=== PATIENT | male | born 1950 | race American Indian/Alaskan Native ===

== ENCOUNTER 2017-05-19 16:44 | Inpatient (IN) | payer MEDICARE, BC ==
[2017-05-19 16:44] VITALS: BMI 30.9
--- NOTE | 2017-05-19 18:20 | C.PDOC ---
History Of Present Illness 66 year old male presents to the ED after being sent by Dr. Diallo for admission for malignant otitis externa to his right ear. Patient states his symptoms began 3 weeks ago and symptoms worsened. Patient denies fever, chills. Time Seen by Provider: 05/19/17 17:40 Chief Complaint (Nursing): ENT Problem History Per: Patient History/Exam Limitations: None Onset/Duration Of Symptoms: Hrs Current Symptoms Are (Timing): Still Present Quality (Ear): Discharge. denies: Pain W/Touch Past Medical History Reviewed: Historical Data, Nursing Documentation, Vital Signs Vital Signs: Last Vital Signs Temp 97.8 F 05/19/17 16:58 Pulse 60 05/19/17 16:58 Resp 20 05/19/17 16:58 BP Pulse Ox 97 05/19/17 18:48 - Medical History PMH: Anemia, Fractures (RIGHT LEG HAIRLINE FX), HTN, Hypercholesterolemia Denies: Arthritis, CHF, COPD, HIV, Hypothyroidism, Chronic Kidney Disease, Rheumatoid Arthritis Surgical History: No Surg Hx - [facility] Procedures BELOW KNEE AMPUTAT NEC (08/07/14) OCCUPATIONAL THERAPY (12/02/14) PACKED CELL TRANSFUSION (08/07/14) PHYSICAL THERAPY NEC (12/02/14) RECREATIONAL THERAPY (12/02/14) Family History: States: Unknown Family Hx - Social History Hx Alcohol Use: No Hx Substance Use: No - Immunization History Hx Tetanus Toxoid Vaccination: No Hx Influenza Vaccination: Yes Hx Pneumococcal Vaccination: No Review Of Systems Except As Marked, All Systems Reviewed And Found Negative. Constitutional: Negative for: Fever, Chills ENT: Positive for: Ear Discharge (right). Negative for: Ear Pain Gastrointestinal: Negative for: Nausea Physical Exam - Physical Exam Appears: Non-toxic, No Acute Distress Skin: Normal Color, Warm, Dry, No Rash Head: Atraumatic, Normacephalic, No Tenderness (mastoid ), No Other (no pain with tragus manipulation ) Eye(s): bilateral: Normal Inspection, PERRL, EOMI Ear(s): Left: Other (Right TM: bleeding and discharge noted. left TM intact with mild congestion ), Right: Other Oral Mucosa: Moist Throat: No Erythema, No Exudate Neck: Normal ROM, Supple Chest: Symmetrical, No Deformity, No Tenderness Cardiovascular: Rhythm Regular, No Murmur Respiratory: Normal Breath Sounds, No Accessory Muscle Use Extremity: Normal ROM, Capillary Refill (less than 2 seconds ) Neurological/Psych: Oriented x3, Normal Speech, Normal Cognition Gait: Steady ED Course And Treatment - Laboratory Results Result Diagrams: 05/19/17 18:17 05/19/17 18:17 O2 Sat by Pulse Oximetry: 97 (on RA) Pulse Ox Interpretation: Normal Medical Decision Making Medical Decision Making: Progress: Case was discussed with Dr. Daillo (ENT) who states that the patient failed outpatient therapy. Bloodwork, UA ordered and reviewed. The case was discussed with Dr. Schmidt (PMD) who states he does not admit. Case was discussed with Dr. Haro (internal medicine oncall) who agrees to admit the patient to his service. Zosyn IV ordered. Disposition - Disposition Disposition: HOSPITALIZED Disposition Time: 18:19 Condition: FAIR Forms: [facility] (Yi) - POA Present On Arrival: None - Clinical Impression Clinical Impression: Malignant otitis externa - PA / FAMILY RESOURCE COORDINATOR / Resident Statement MD/DO has reviewed & agrees with the documentation as recorded. - Scribe Statement All medical record entries made by the Scribe were at my direction and personally dictated by me. I have reviewed the chart and agree that the record accurately reflects my personal performance of the history, physical exam, medical decision making, and the department course for this patient. I have also personally directed, reviewed, and agree with the discharge instructions and disposition.
[2017-05-19] MEDS ORDERED: Piperacillin/Tazobact 3.375 gm 100 ML IV STA (18:21)
[2017-05-19 18:24] LABS: BASO % 0.8 % (0.0-2.0); EOS # 0.1 K/uL (0.0-0.7); HEMATOCRIT 35.3 % (35.0-51.0); LYMPH % 24.4 % (20.0-40.0); MEAN CELL VOLUME 87.9 fL (80.0-94.0); MEAN CORPUSCULAR HEMOGLOBIN 29.3 pg (27.0-31.0); MEAN CORPUSCULAR HGB CONC 33.3 g/dL (33.0-37.0); MEAN PLATELET VOLUME 7.3 fL (7.2-11.7); MONO # 0.4 K/uL (0.0-0.8); NRBC % 0.1 % (0.0-2.0); RED CELL DISTRIBUTION WIDTH 14.1 % (11.5-14.5); WHITE BLOOD COUNT 4.1 K/uL (4.8-10.8)
[2017-05-19 18:32] LABS: BILIRUBIN,TOTAL 0.8 mg/dL (0.2-1.3); CALCIUM 8.8 mg/dl (8.6-10.4); GFR AFRICAN-AMERICAN > 60; GLUCOSE,RANDOM 79 mg/dL (75-110); TOTAL PROTEIN 8.5 g/dL (6.3-8.3)
[2017-05-19 18:41] LABS: ALB/GLOB RATIO 1.1 (1.0-2.1); ALKALINE PHOSPHATASE 64 U/L (38-126); ALT/SGPT 28 U/L (21-72); AST/SGOT 26 U/L (17-59); BLOOD UREA NITROGEN 34 mg/dL (9-20); CARBON DIOXIDE 24 mmol/L (22-30); CHLORIDE 104 mmol/L (98-107); POTASSIUM 4.6 mmol/L (3.6-5.2); SODIUM 137 mmol/L (132-148)
[2017-05-19] MEDS: Piperacill/Tazo 3.375gm in Dex 3.375 GM/50 ML BAG IVPB SCH (19:01)
--- NOTE | 2017-05-19 22:44 | CP.PCM.HP ---
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 LEMON, ENT for admission for malignant otitis externa to his right ear. Patient states 3 weeks ago he started with pain right ear when he went to see his PMD who gave him some eardrops and referred him to ENT. Patient was then seen by ENT and referred to [facility] ER for admission as reported. Patient was empirically started on IV Zosyn 3.375 every 8 hourly. Patient denies any fever or chills, denies any headaches or any visual problems. Patient states he noticed the discharge from his right ear and some bleeding for one day prior to admission. Patient denies any sore throat or any previous such history of ear infections. Infectious disease consultation requested by PMD for further evaluation. PATIENT UNDERWENT MRI OF THE ORBIT/FACE/NECK AND IAC WHICH SHOWED RIGHT EXTERNAL AUDITORY CANAL DIFFUSE ENHANCING WALL THICKENING SUGGESTIVE OF OTITIS EXTERNA, NO ABSCESS WAS SEEN. SMALL EFFUSION SUPERIOR PORTION OF RIGHT MASTOID WAS SEEN.( see report ) PATIENT ALSO UNDERWENT ON 05/20/[address] AND MASTOID-WHICH CONFIRMED THE FINDINGS OF COMPLETE OBSTRUCTION OF EXTERNAL CANAL AND DIFFUSE THICKENING RIGHT EAC. NO BONY DESTRUCTION OF THE ORBITS MEDIA WAS SEEN. ( see full report ) PMH: Anemia, Fractures (RIGHT LEG HAIRLINE FX), HTN, Hypercholesterolemia Denies: Arthritis, CHF, COPD, HIV, Hypothyroidism, Chronic Kidney Disease, Rheumatoid Arthritis Surgical History: LEFT BKA 2015. Present on Admission - Present on Admission Any Indicators Present on Admission: Yes Review of Systems - Review of Systems Systems not reviewed;Unavailable: Acuity of Condition - Constitutional Constitutional: Chills, Fatigue, Fever, Lethargy, Malaise - EENT Eyes: absent: As Per HPI, Blind Spots, Blurred Vision, Change in Vision, Decreased Night Vision, Diplopia, Discharge, Dry Eye, Exophthalmos, Floaters, Irritation, Itchy Eyes, Loss of Peripheral Vision, Pain, Photophobia, Requires Corrective Lenses, Sees Flashes, Spots in Vision, Tunnel Vision, Other Visual Disturbances, Loss of Vision, Other Ears: Ear Discharge, Ear Pain Nose/Mouth/Throat: absent: As Per HPI, Epistaxis, Nasal Congestion, Nasal Discharge, Nasal Obstruction, Nasal Trauma, Nose Pain, Post Nasal Drip, Sinus Pain, Sinus Pressure, Bleeding Gums, Change in Voice, Dental Pain, Dry Mouth, Dysphagia, Halitosis, Hoarsness, Lip Swelling, Mouth Lesions, Mouth Pain, Odynophagia, Sore Throat, Throat Swelling, Tongue Swelling, Facial Pain, Neck Pain, Neck Mass, Other - Cardiovascular Cardiovascular: absent: As Per HPI, Acrocyanosis, Chest Pain, Chest Pain at Rest , Chest Pain with Activity, Claudication, Diaphoresis, Dyspnea, Dyspnea on Exertion, Edema, Irregular Heart Rhythm, Pain Radiating to Arm/Neck/Jaw, Leg Edema, Leg Ulcers, Lightheadedness, Orthopnea, Palpitations, Paroxysmal Nocturnal Dyspnea, Pedal Edema, Radiating Pain, Rapid Heart Rate, Slow Heart Rate, Syncope, Other - Respiratory Respiratory: absent: As Per HPI, Cough, Dyspnea, Hemoptysis, Dyspnea on Exertion , Wheezing, Snoring, Stridor, Pain on Inspiration, Chest Congestion, Excessive Mucous Production, Change in Mucous Color, Pain with Coughing, Other Past Patient History - Infectious Disease Hx of Infectious Diseases: None - Tetanus Immunizations Tetanus Immunization: Unknown - Past Medical History & Family History Past Medical History?: Yes - Past Social History Smoking Status: Never Smoked - CARDIAC Hx Congestive Heart Failure: No Hx Hypercholesterolemia: Yes Hx Hypertension: Yes - PULMONARY Hx Chronic Obstructive Pulmonary Disease (COPD): No - NEUROLOGICAL HX Cerebrovascular Accident: No - HEENT Hx HEENT Problems: No - RENAL Hx Chronic Kidney Disease: No - ENDOCRINE/METABOLIC Hx Hypothyroidism: No - HEMATOLOGICAL/ONCOLOGICAL Hx Anemia: Yes Hx Human Immunodeficiency Virus (HIV): No - INTEGUMENTARY Hx Dermatological Problems: Yes (LEFT FOOT ULCER, LEFT LEG ULCER) - MUSCULOSKELETAL/RHEUMATOLOGICAL Hx Arthritis: No Hx Fractures: Yes (RIGHT LEG HAIRLINE FX) Hx Rheumatoid Arthritis: No - GASTROINTESTINAL Hx Gastrointestinal Disorders: No - GENITOURINARY/GYNECOLOGICAL Hx Genitourinary Disorders: No - PSYCHIATRIC Hx Substance Use: No - SURGICAL HISTORY Hx Surgeries: Yes Hx Amputation: Yes (LEFT BKA 08/07/14 C/O DR. EDMONDSON) Other/Comment: RIGHT TOES AMPUTATION 2003, LEFT TOES AMPUTATION 2011, LEFT BKA C/O DR. CAI - ANESTHESIA Hx Anesthesia: Yes Hx Anesthesia Reactions: No Hx Malignant Hyperthermia: No Meds Allergies/Adverse Reactions: Allergies Allergy/AdvReac Type Severity Reaction Status Date / Time No Known Allergies Allergy Verified 05/19/17 16:59 Physical Exam - Constitutional Appears: No Acute Distress - Eye Exam Eye Exam: EOMI, Normal appearance, PERRL Pupil Exam: NORMAL ACCOMODATION, PERRL - ENT Exam ENT Exam: absent: Mucous Membranes Dry, Mucous Membranes Moist, Normal Exam, Normal External Ear Exam, Normal Oropharynx, TM's Normal Bilaterally - Cardiovascular Exam Cardiovascular Exam: REGULAR RHYTHM - GI/Abdominal Exam GI & Abdominal Exam: Normal Bowel Sounds, Soft. absent: Tenderness - Rectal Exam Rectal Exam: NORMAL INSPECTION Results - Vital Signs Recent Vital Signs: Last Vital Signs Temp 97.8 F 05/19/17 22:39 Pulse 50 L 05/19/17 22:39 Resp 19 05/19/17 22:39 BP 167/74 H 05/19/17 22:39 Pulse Ox 98 05/19/17 22:39 - Labs Result Diagrams: 05/22/17 07:29 05/22/17 07:29 Labs: Laboratory Results - last 24 hr 05/19/17 05/19/17 18:17 18:17 WBC 4.1 L RBC 4.01 L Hgb 11.8 L D Hct 35.3 MCV 87.9 MCH 29.3 MCHC 33.3 RDW 14.1 Plt Count 229 MPV 7.3 Neut % (Auto) 61.8 Lymph % (Auto) 24.4 [place] % (Auto) 10.0 Eos % (Auto) 3.0 Baso % (Auto) 0.8 Neut # 2.5 Lymph # 1.0 [place] # 0.4 Eos # 0.1 Baso # 0.0 Sodium 137 Potassium 4.6 Chloride 104 Carbon Dioxide 24 Anion Gap 13 BUN 34 H Creatinine 1.3 Est GFR ( Amer) > 60 Est GFR (Non-Af Amer) 55 Random Glucose 79 Calcium 8.8 Total Bilirubin 0.8 AST 26 ALT 28 Alkaline Phosphatase 64 Total Protein 8.5 H Albumin 4.4 Globulin 4.1 H Albumin/Globulin Ratio 1.1 Assessment & Plan (1) Malignant otitis externa Status: Acute (2) CKD (chronic kidney disease) stage 3, GFR 30-59 ml/min Status: Acute (3) DVT prophylaxis Status: Acute Priority: High (4) S/P BKA (below knee amputation) unilateral Status: Acute Priority: High (5) Anemia Status: Chronic Priority: Low (6) Diabetes mellitus Status: Chronic Priority: High (7) Hyperlipidemia Status: Chronic Priority: Medium (8) Hypertension Status: Chronic Priority: Medium
[2017-05-20] MEDS: Rosuvastatin Calcium 2.5 mg Tab PO SCH ×2 (00:08→21:27)
[2017-05-20] MEDS: Insulin Detemir 100 units/ml Vial (Levemir) SC SCH ×2 (00:08→21:27)
[2017-05-20] MEDS: Piperacill/Tazo 3.375gm in Dex 3.375 GM/50 ML BAG IVPB SCH ×2 (02:01→06:49)
--- NOTE | 2017-05-20 09:50 | CP.PCM.CON ---
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 LEMON, ENT for admission for malignant otitis externa to his right ear. Patient states 3 weeks ago he started with pain right ear when he went to see his PMD who gave him some eardrops and referred him to ENT. Patient was then seen by ENT and referred to [facility] ER for admission as reported. Patient was empirically started on IV Zosyn 3.375 every 8 hourly. Patient denies any fever or chills, denies any headaches or any visual problems. Patient states he noticed the discharge from his right ear and some bleeding for one day prior to admission. Patient denies any sore throat or any previous such history of ear infections. Infectious disease consultation requested by PMD for further evaluation. PATIENT UNDERWENT MRI OF THE ORBIT/FACE/NECK AND IAC WHICH SHOWED RIGHT EXTERNAL AUDITORY CANAL DIFFUSE ENHANCING WALL THICKENING SUGGESTIVE OF OTITIS EXTERNA, NO ABSCESS WAS SEEN. SMALL EFFUSION SUPERIOR PORTION OF RIGHT MASTOID WAS SEEN.( see report ) PATIENT ALSO UNDERWENT ON 05/20/[address] AND MASTOID-WHICH CONFIRMED THE FINDINGS OF COMPLETE OBSTRUCTION OF EXTERNAL CANAL AND DIFFUSE THICKENING RIGHT EAC. NO BONY DESTRUCTION OF THE ORBITS MEDIA WAS SEEN. ( see full report ) PMH: Anemia, Fractures (RIGHT LEG HAIRLINE FX), HTN, Hypercholesterolemia Denies: Arthritis, CHF, COPD, HIV, Hypothyroidism, Chronic Kidney Disease, Rheumatoid Arthritis Surgical History: LEFT BKA 2014. - [facility] Procedures BELOW KNEE AMPUTAT NEC (08/07/14) OCCUPATIONAL THERAPY (12/02/14) PACKED CELL TRANSFUSION (08/07/14) PHYSICAL THERAPY NEC (12/02/14) RECREATIONAL THERAPY (12/02/14) Family History: States: Unknown Family Hx - Social History Hx Alcohol Use: No Hx Substance Use: No - Immunization History Hx Tetanus Toxoid Vaccination: No Hx Influenza Vaccination: Yes Hx Pneumococcal Vaccination: No Review of Systems - Constitutional Constitutional: absent: Chills, Fever, Headache - EENT Eyes: absent: Change in Vision, Photophobia, Other Visual Disturbances, Loss of Vision Nose/Mouth/Throat: Dry Mouth. absent: Mouth Lesions - Cardiovascular Cardiovascular: absent: Chest Pain - Respiratory Respiratory: absent: Cough - Gastrointestinal Gastrointestinal: absent: Abdominal Pain, Constipation, Diarrhea - Genitourinary Genitourinary: absent: Dysuria, Urinary Urgency, Hx /Renal Surgery - Musculoskeletal Musculoskeletal: absent: Arthralgias - Neurological Neurological: absent: Headaches, Weakness, Other Visual Disturbances - Hematologic/Lymphatic Hematologic: As Per HPI. absent: Easy Bruising, Lymphadenopathy Past Patient History - Infectious Disease Hx of Infectious Diseases: None - Tetanus Immunizations Tetanus Immunization: Unknown - Past Medical History & Family History Past Medical History?: Yes - Past Social History Smoking Status: Never Smoked - CARDIAC Hx Congestive Heart Failure: No Hx Hypercholesterolemia: Yes Hx Hypertension: Yes - PULMONARY Hx Chronic Obstructive Pulmonary Disease (COPD): No - NEUROLOGICAL HX Cerebrovascular Accident: No - HEENT Hx HEENT Problems: No - RENAL Hx Chronic Kidney Disease: No - ENDOCRINE/METABOLIC Hx Hypothyroidism: No - HEMATOLOGICAL/ONCOLOGICAL Hx Anemia: Yes Hx Human Immunodeficiency Virus (HIV): No - INTEGUMENTARY Hx Dermatological Problems: Yes (LEFT FOOT ULCER, LEFT LEG ULCER) - MUSCULOSKELETAL/RHEUMATOLOGICAL Hx Arthritis: No Hx Fractures: Yes (RIGHT LEG HAIRLINE FX) Hx Rheumatoid Arthritis: No - GASTROINTESTINAL Hx Gastrointestinal Disorders: No - GENITOURINARY/GYNECOLOGICAL Hx Genitourinary Disorders: No - PSYCHIATRIC Hx Substance Use: No - SURGICAL HISTORY Hx Surgeries: Yes Hx Amputation: Yes (LEFT BKA 08/07/14 C/O DR. EDMONDSON) Other/Comment: RIGHT TOES AMPUTATION 2003, LEFT TOES AMPUTATION 2011, LEFT BKA C/O DR. CAI - ANESTHESIA Hx Anesthesia: Yes Hx Anesthesia Reactions: No Hx Malignant Hyperthermia: No Meds Allergies/Adverse Reactions: Allergies Allergy/AdvReac Type Severity Reaction Status Date / Time No Known Allergies Allergy Verified 05/19/17 16:59 - Medications Medications: Current Medications Amlodipine Besylate (Norvasc) 10 mg PO DAILY [facility] Aspirin (Ecotrin) 81 mg PO DAILY [facility] Bisoprolol Fumarate/HCTZ (Ziac 10-6.25 Mg) 1 tab PO DAILY [facility] Carvedilol (Coreg) 12.5 mg PO BID [facility] Clopidogrel Bisulfate (Plavix) 75 mg PO DAILY [facility] Enoxaparin Sodium (Lovenox) 40 mg SC DAILY [facility] Furosemide (Lasix) 40 mg PO DAILY [facility] Hydralazine HCl (Apresoline) 25 mg PO Q8 [facility] Last Admin: 05/20/17 06:17 Dose: 25 mg Piperacillin Sod/Tazobactam Sod (Zosyn 3.375 Gm Iv Premix) 3.375 gm in 50 mls @ 100 mls/hr IVPB Q6H [facility] Last Admin: 05/20/17 06:49 Dose: 100 mls/hr Insulin Detemir (Levemir) 5 unit SC [facility] Last Admin: 05/20/17 00:08 Dose: 5 unit Rosuvastatin Calcium (Crestor) 2.5 mg PO [facility] Last Admin: 05/20/17 00:08 Dose: 2.5 mg Physical Exam - Constitutional Appears: No Acute Distress - Head Exam Head Exam: NORMAL INSPECTION, NORMOCEPHALIC - Eye Exam Eye Exam: EOMI, PERRL. absent: Scleral icterus - ENT Exam ENT Exam: Normal External Ear Exam (left ear. Rt. ear dried-up blood noticed in the external ear canal. Eardrum not visualized.), Normal Oropharynx - Neck Exam Neck exam: Positive for: Normal Inspection. Negative for: Meningismus - Respiratory Exam Respiratory Exam: Clear to Auscultation Bilateral, NORMAL BREATHING PATTERN - Cardiovascular Exam Cardiovascular Exam: REGULAR RHYTHM, +S2 - GI/Abdominal Exam GI & Abdominal Exam: Normal Bowel Sounds, Soft. absent: Tenderness - Extremities Exam Extremities exam: Negative for: calf tenderness, pedal edema Additional comments: left below-knee amputation. - Neurological Exam Neurological exam: Alert, CN II-XII Intact, Oriented x3, Reflexes Normal - Psychiatric Exam Psychiatric exam: Normal Mood - Skin Skin Exam: Normal Color, Warm Results - Vital Signs Recent Vital Signs: Last Vital Signs Temp 98.1 F 05/20/17 09:21 Pulse 87 05/20/17 09:21 Resp 18 05/20/17 09:21 BP 160/75 H 05/20/17 09:21 Pulse Ox 96 05/20/17 09:21 - Labs Result Diagrams: 05/19/17 18:17 05/19/17 18:17 Labs: Laboratory Results - last 24 hr 05/19/17 05/19/17 05/19/17 18:17 18:17 23:49 WBC 4.1 L RBC 4.01 L Hgb 11.8 L D Hct 35.3 MCV 87.9 MCH 29.3 MCHC 33.3 RDW 14.1 Plt Count 229 MPV 7.3 Neut % (Auto) 61.8 Lymph % (Auto) 24.4 [place] % (Auto) 10.0 Eos % (Auto) 3.0 Baso % (Auto) 0.8 Neut # 2.5 Lymph # 1.0 [place] # 0.4 Eos # 0.1 Baso # 0.0 Sodium 137 Potassium 4.6 Chloride 104 Carbon Dioxide 24 Anion Gap 13 BUN 34 H Creatinine 1.3 Est GFR ( Amer) > 60 Est GFR (Non-Af Amer) 55 POC Glucose (mg/dL) 90 Random Glucose 79 Calcium 8.8 Total Bilirubin 0.8 AST 26 ALT 28 Alkaline Phosphatase 64 Total Protein 8.5 H Albumin 4.4 Globulin 4.1 H Albumin/Globulin Ratio 1.1 Assessment & Plan (1) Malignant otitis externa Assessment and Plan: Pancultures Right ear culture As bloody discharge noted right ear. ESR, CRP. THREE-PHASE BONE SCAN IAC RT EAR ORDERED BY DR. LEMON. CASE DISCUSSED WITH ENT DR. LEMON. REPORTED MUCH GRANULATION TISSUE WAS VISIBLE ON EXAMINATION BY ENT. DC IV ZOSYN START iv MAXIPIME 1 G iv PIGGYBACK EVERY 8 HOURLY FOR BETTER PSEUDOMONAL COVERAGE, MORE OF THE INFECTIONS IN DIABETICS ARE WITH PSEUDOMONAS AERUGINOSA. fOLLOW-UP CULTURES TO ADJUST ANTIBIOTICS. MALIGNANT EXTERNAL OTITIS CAUSED BY ASPERGILLUS SPECIES IS FAR LESS OFTEN, WE WILL RESERVE BIOPSY FOR PATIENTS WHO HAVE NOT RESPONDED TO THERAPY FOR PSEUDOMONAS AERUGINOSA INFECTION. MONITOR RENAL FUNCTIONS CLOSELY PATIENT HAS HISTORY OF CHRONIC RENAL INSUFFICIENCY. MONITOR CBC WITH DIFFERENTIAL PATIENT NOTED TO BE SLIGHTLY LEUKOPENIC. AWAIT CULTURES TO ADJUST ANTIBIOTICS. WILL FOLLOW WITH YOU WHILE PATIENT IN HOSPITAL.. Status: Acute (2) Diabetes mellitus Assessment and Plan: HEMOGLOBIN a1C. ADEQUATE CONTROL OF BLOOD SUGARS PER PMD. Status: Chronic Priority: High (3) S/P BKA (below knee amputation) unilateral Status: Acute Priority: High (4) Hyperlipidemia Status: Chronic Priority: Medium (5) Hypertension Status: Chronic Priority: Medium (6) CKD (chronic kidney disease) stage 3, GFR 30-59 ml/min Status: Acute
[2017-05-20] MEDS ORDERED: Bisoprolol-HCTZ 10-6.25 mg Tab PO SCH (10:00)
[2017-05-20] MEDS ORDERED: Gadodiamide 287 mg/ml 20 ml IV ONE (10:10)
[2017-05-20] MEDS: Enoxaparin 40 mg Syringe SC SCH (11:37)
--- NOTE | 2017-05-20 11:39 | MRI ---
PROCEDURE: MRI OF THE BRAIN AND INTERNAL AUDITORY CANALS WITH AND WITHOUT CONTRAST. HISTORY: rule out malignant otitis externa COMPARISON: None. TECHNIQUE: Multiplanar, multisequence MR images of the brain and posterior fossa were obtained with and without contrast. High-resolution posterior fossa and images through the cerebellopontine angle and internal auditory canals included: Axial 3-D fiesta, axial T1 pre-and postcontrast enhanced and coronal T1 pre-and postcontrast enhanced. FINDINGS: IAC/CP ANGLES: INTERNAL AUDITORY CANALS: Unremarkable. CEREBELLOPONTINE ANGLES: Unremarkable. INNER EAR STRUCTURES: Unremarkable. Normally formed cochlea and semicircular canals. No signal abnormality or abnormal enhancement in the membranous labyrinth of the cochlea, vestibule or the semicircular canals. BRAINSTEM: Unremarkable. MASTOIDS: There is a small effusion in the superior portion of the right mastoid. The left mastoid is grossly unremarkable. OTHER: There is diffuse enhancing thickening of the right external auditory canal and visualized portion of the ear suggestive of otitis externa. No evidence of discrete fluid collection/abscess formation in the visualized portion of the external right ear BRAIN (LIMITED): No mass effect or edema. PARANASAL SINUSES: Clear IMPRESSION: Right external auditory canal diffuse enhancing wall thickening suggestive of otitis externa. No evidence of discrete abscess formation in the visualized portion of the external right ear. Small effusion in the superior portion of the right mastoid. No evidence of right otitis media. No evidence of mass lesion or acute pathology in the internal auditory canal bilaterally.
--- NOTE | 2017-05-20 12:09 | CT ---
PROCEDURE: CT OF THE TEMPORAL BONES WITHOUT CONTRAST HISTORY: rule out malignant otitis externa COMPARISON: None available. TECHNIQUE: High resolution axial images of the temporal bones were obtained. Coronal and sagittal reformats were generated. Radiation dose: Total exam DLP = 608.58 mGy-cm. This CT exam was performed using one or more of the following dose reduction techniques: Automated exposure control, adjustment of the mA and/or kV according to patient size, and/or use of iterative reconstruction technique. FINDINGS: RIGHT TEMPORAL BONE: RIGHT MIDDLE EAR: Normal. RIGHT INNER EAR: Cochlea: Normal. Semicircular canals: Normal. RIGHT MASTOID AIR CELLS: Partial opacification and small effusion noted at the right mastoid. RIGHT INTERNAL AUDITORY CANAL: No evidence of mass lesion at the right internal auditory canal. RIGHT EXTERNAL AUDITORY CANAL: Diffuse market thickening of the right external auditory canal which resulting in almost complete obstruction. RIGHT VESTIBULAR AND COCHLEAR AQUEDUCT: Normal. OTHER FINDINGS: None. LEFT TEMPORAL BONE: LEFT MIDDLE EAR: Normal. LEFT INNER EAR: Cochlea: Normal. Semicircular canals: Normal. LEFT MASTOID AIR CELLS: Normal. LEFT INTERNAL AUDITORY CANAL: Normal. LEFT EXTERNAL AUDITORY CANAL: Normal. LEFT VESTIBULAR AND COCHLEAR AQUEDUCTS: Normal. OTHER FINDINGS: None. IMPRESSION: Diffuse thickening of the right external auditory canal wall which resulting in almost complete obstruction of the external canal. No evidence of discrete fluid collection in this noncontrast study. Small effusion at the right mastoid air cells. . No evidence of bony destruction or otitis media.
--- NOTE | 2017-05-20 15:47 | NM ---
PROCEDURE: Three-phase bone scan. HISTORY: possible malignant otitis externa COMPARISON: May 20, 2017. CT temporal bones. May 20, 2017. MRI IAC region. TECHNIQUE: Following administration of 23.4 miCu of Tc MDP multiplanar whole body images were obtained. FINDINGS: Flow component: Normal and symmetrical flow to the head and neck regions Blood pool component: Faint accumulation of radionuclide skullbase region on the right Delayed images at 3:00: Slightly asymmetric retention of radionuclide right skullbase region consistent with findings of an sectional imaging studies. The asymmetry although subtle is compared to the left side which appears unremarkable. Other findings: IMPRESSION: Negative study for acute osseous process. Accumulation of radionuclide area of interests consistent with soft tissue findings/external otitis unilateral right side.
[2017-05-20] MEDS: (Novolog) Insulin Aspart, Recombinant 100 u/ml 10 ml vial SC SCH ×2 (17:28→22:16)
--- NOTE | 2017-05-20 18:39 | CON ---
DATE: 05/20/2017 REASON FOR CONSULTATION: Possible malignant otitis externa. HISTORY: This is a 66-year-old male who has been having ear discharge and pain on the right for 3 weeks, constant, moderate in intensity, has improved since. There is also hearing loss on that side. The patient presented to my office with these symptoms yesterday and was told to come to the ER. He is admitted to the hospital at this point and started on IV antibiotics. PAST MEDICAL HISTORY: Including diabetes as noted in the chart by me. MEDICATIONS: As noted in the chart by me. PHYSICAL EXAMINATION: HEAD: Atraumatic and normocephalic. FACE: Good facial movements bilaterally. GENERAL: Well fed, well nourished and well groomed. COMMUNICATION: Communicates well and appropriately. EXTERNAL NOSE: No masses. No lesions. No erythema. No edema. : No masses. No lesions. No erythema. No edema. EARS: There is large granulation tissue noted in the right ear canal; blocking the ears, therefore, the TM cannot be well visualized. Discharge is noted in the ear canal. ORAL CAVITY AND OROPHARYNX: No masses. No lesions. No erythema. No edema. LIPS AND GUMS: No masses. No lesions. No erythema. No edema. NECK: Supple. THYROID: No thyromegaly. No goiter. LYMPH NODES: No lymphadenopathy of the neck. INTERNAL NOSE: Deviated septum. No masses. No lesions. No erythema. No edema. ASSESSMENT: 1. Rule out malignant otitis externa. 2. Deviated septum. PLAN: Obtained bone scan, MRI, and CAT scan. ID consult will follow. Missael Diallo MD
--- NOTE | 2017-05-20 23:33 | CP.PCM.PN ---
Subjective - Date & Time of Evaluation Date of Evaluation: 05/20/17 Time of Evaluation: 18:50 - Subjective Subjective: Pt seen and examined hearing loss on right, constant, moderate, no change Objective - Vital Signs/Intake and Output Vital Signs (last 24 hours): Temp Pulse Resp BP Pulse Ox 97.6 F 60 20 155/72 H 96 05/20/17 16:21 05/20/17 21:24 05/20/17 16:21 05/20/17 21:24 05/20/17 16:21 - Medications Medications: Current Medications Amlodipine Besylate (Norvasc) 10 mg PO DAILY [facility] Last Admin: 05/20/17 11:36 Dose: 10 mg Aspirin (Ecotrin) 81 mg PO DAILY [facility] Last Admin: 05/20/17 11:37 Dose: 81 mg Bisoprolol Fumarate/HCTZ (Ziac 10-6.25 Mg) 1 tab PO DAILY [facility] Last Admin: 05/20/17 11:37 Dose: 1 tab Carvedilol (Coreg) 12.5 mg PO BID [facility] Last Admin: 05/20/17 18:43 Dose: Not Given Clopidogrel Bisulfate (Plavix) 75 mg PO DAILY [facility] Enoxaparin Sodium (Lovenox) 40 mg SC DAILY [facility] Last Admin: 05/20/17 11:37 Dose: 40 mg Furosemide (Lasix) 40 mg PO DAILY [facility] Last Admin: 05/20/17 11:37 Dose: 40 mg Hydralazine HCl (Apresoline) 25 mg PO Q8 [facility] Last Admin: 05/20/17 21:27 Dose: 25 mg Cefepime HCl 1 gm/ Dextrose 50 mls @ 100 mls/hr IVPB Q8H [facility] Last Admin: 05/20/17 18:33 Dose: 100 mls/hr Insulin Aspart (Novolog) 0 unit SC [facility] PRN Reason: Protocol Last Admin: 05/20/17 22:16 Dose: Not Given Insulin Detemir (Levemir) 5 unit SC [facility] Last Admin: 05/20/17 21:27 Dose: 5 unit Pneumococcal Polyvalent Vaccine (Pneumovax 23 Vaccine) 0.5 ml IM .ONCE ONE Stop: 05/22/17 10:01 Rosuvastatin Calcium (Crestor) 2.5 mg PO [facility] Last Admin: 05/20/17 21:27 Dose: 2.5 mg - Labs Labs: 05/19/17 18:17 05/19/17 18:17 - Constitutional Appears: No Acute Distress - Head Exam Head Exam: ATRAUMATIC, NORMAL INSPECTION, NORMOCEPHALIC - Eye Exam Eye Exam: EOMI, Normal appearance, PERRL Pupil Exam: NORMAL ACCOMODATION, PERRL - ENT Exam Additional comments: hearing loss on right, constant, moderate, no change external nose and ears: no masses, no lesions, no erythema nose: deviated septum ears: polyp on the right with d/c - Respiratory Exam Respiratory Exam: Clear to Ausculation Bilateral, NORMAL BREATHING PATTERN - Cardiovascular Exam Cardiovascular Exam: REGULAR RHYTHM, +S1, +S2. absent: Murmur - GI/Abdominal Exam GI & Abdominal Exam: Soft, Normal Bowel Sounds. absent: Tenderness Assessment and Plan (1) Malignant otitis externa Assessment & Plan: on cefepime contact isolation Status: Acute (2) CKD (chronic kidney disease) stage 3, GFR 30-59 ml/min Status: Acute (3) DVT prophylaxis Status: Acute (4) Prophylactic measure Status: Acute (5) S/P BKA (below knee amputation) unilateral Status: Acute (6) Anemia Status: Chronic (7) Diabetes mellitus Status: Chronic (8) Hyperlipidemia Status: Chronic
[2017-05-21] MEDS: (Novolog) Insulin Aspart, Recombinant 100 u/ml 10 ml vial SC SCH ×4 (07:30→21:38)
[2017-05-21 08:08] LABS: BASO % 0.8 % (0.0-2.0); EOS # 0.1 K/uL (0.0-0.7); EOS % 2.4 % (0.0-4.0); HEMATOCRIT 32.8 % (35.0-51.0); LYMPH # 0.8 K/uL (1.0-4.3); LYMPH % 19.8 % (20.0-40.0); MEAN CELL VOLUME 87.9 fL (80.0-94.0); MEAN CORPUSCULAR HEMOGLOBIN 29.6 pg (27.0-31.0); MEAN CORPUSCULAR HGB CONC 33.7 g/dL (33.0-37.0); MEAN PLATELET VOLUME 7.8 fL (7.2-11.7); MONO # 0.3 K/uL (0.0-0.8); MONO % 8.9 % (0.0-10.0); NRBC % 0.2 % (0.0-2.0); RED CELL DISTRIBUTION WIDTH 13.9 % (11.5-14.5); WHITE BLOOD COUNT 3.9 K/uL (4.8-10.8)
--- NOTE | 2017-05-21 08:28 | CP.PCM.PN ---
Subjective - Date & Time of Evaluation Date of Evaluation: 05/21/17 Time of Evaluation: 08:25 - Subjective Subjective: hearing loss on right, constant, moderate, no change all: nkda head: atraumatic face: good movements general: well fed com: communicates well external nose and ears: no masses, no lesions, no erythema nose: deviated septum oc/op: no masses, no lesions neck: supple thyroid: no goiter ears: polyp on the right with d/c lymp: no lad ct, MRI and bone scan results noted a/p: deviated septum MAHAMED ruled out OE ok to d/c home on antibiotics oraly as per ID (since there is a polyp in the canal) and ear drops (cortisporin or Ciprodex) Objective - Vital Signs/Intake and Output Vital Signs (last 24 hours): Temp Pulse Resp BP Pulse Ox 97.8 F 57 L 20 145/88 96 05/21/17 07:58 05/21/17 07:58 05/21/17 07:58 05/21/17 07:58 05/21/17 07:58 Intake and Output: 05/21/17 05/21/17 06:59 18:59 Intake Total 650 Balance 650 - Medications Medications: Current Medications Amlodipine Besylate (Norvasc) 10 mg PO DAILY [facility] Last Admin: 05/20/17 11:36 Dose: 10 mg Aspirin (Ecotrin) 81 mg PO DAILY [facility] Last Admin: 05/20/17 11:37 Dose: 81 mg Bisoprolol Fumarate/HCTZ (Ziac 10-6.25 Mg) 1 tab PO DAILY [facility] Last Admin: 05/20/17 11:37 Dose: 1 tab Carvedilol (Coreg) 12.5 mg PO BID [facility] Last Admin: 05/20/17 18:43 Dose: Not Given Clopidogrel Bisulfate (Plavix) 75 mg PO DAILY [facility] Enoxaparin Sodium (Lovenox) 40 mg SC DAILY [facility] Last Admin: 05/20/17 11:37 Dose: 40 mg Furosemide (Lasix) 40 mg PO DAILY [facility] Last Admin: 05/20/17 11:37 Dose: 40 mg Hydralazine HCl (Apresoline) 25 mg PO Q8 [facility] Last Admin: 05/21/17 06:15 Dose: 25 mg Cefepime HCl 1 gm/ Dextrose 50 mls @ 100 mls/hr IVPB Q8H [facility] Last Admin: 05/21/17 02:04 Dose: 100 mls/hr Insulin Aspart (Novolog) 0 unit SC [facility] PRN Reason: Protocol Last Admin: 05/20/17 22:16 Dose: Not Given Insulin Detemir (Levemir) 5 unit SC [facility] Last Admin: 05/20/17 21:27 Dose: 5 unit Pneumococcal Polyvalent Vaccine (Pneumovax 23 Vaccine) 0.5 ml IM .ONCE ONE Stop: 05/22/17 10:01 Rosuvastatin Calcium (Crestor) 2.5 mg PO [facility] Last Admin: 05/20/17 21:27 Dose: 2.5 mg - Labs Labs: 05/21/17 08:01 05/19/17 18:17
[2017-05-21 08:52] LABS: CALCIUM 8.4 mg/dl (8.6-10.4); POTASSIUM 4.4 mmol/L (3.6-5.2)
[2017-05-21] MEDS: Enoxaparin 40 mg Syringe SC SCH (09:36)
--- NOTE | 2017-05-21 13:09 | CP.PCM.PN ---
Subjective - Date & Time of Evaluation Date of Evaluation: 05/21/17 Time of Evaluation: 13:09 - Subjective Subjective: AFEBRILE, VSS. OFFERS NO NEW COMPLAINTS. DENIES HEADACHE. RIGHT EAR PAIN MUCH IMPROVED. THREE-PHASE BONE SCAN; NOTED NO OSSEOUS PROCESS NOTED. LABS; REVIEWED ; wbc 3.9 LOW h&h 11.0/32.0. pLATELETS 222. ESR 23, CRP 4.40 SLIGHTLY HIGH. CREATININE 1.5/bun 34. SEEN BY ENT AND NOTED. NO SURGICAL INTERVENTION RIGHT NOW PER ENT. Objective - Vital Signs/Intake and Output Vital Signs (last 24 hours): Temp Pulse Resp BP Pulse Ox 98 F 56 L 20 130/71 96 05/21/17 13:02 05/21/17 13:02 05/21/17 13:02 05/21/17 13:02 05/21/17 13:02 Intake and Output: 05/21/17 05/21/17 06:59 18:59 Intake Total 650 Balance 650 - Medications Medications: Current Medications Amlodipine Besylate (Norvasc) 10 mg PO DAILY [facility] Last Admin: 05/21/17 09:35 Dose: 10 mg Aspirin (Ecotrin) 81 mg PO DAILY [facility] Last Admin: 05/21/17 09:35 Dose: 81 mg Bisoprolol Fumarate/HCTZ (Ziac 10-6.25 Mg) 1 tab PO DAILY [facility] Last Admin: 05/20/17 11:37 Dose: 1 tab Carvedilol (Coreg) 12.5 mg PO BID [facility] Last Admin: 05/21/17 09:35 Dose: 12.5 mg Clopidogrel Bisulfate (Plavix) 75 mg PO DAILY [facility] Last Admin: 05/21/17 09:35 Dose: 75 mg Enoxaparin Sodium (Lovenox) 40 mg SC DAILY [facility] Last Admin: 05/21/17 09:36 Dose: 40 mg Furosemide (Lasix) 40 mg PO DAILY [facility] Last Admin: 05/21/17 09:35 Dose: 40 mg Hydralazine HCl (Apresoline) 25 mg PO Q8 [facility] Last Admin: 05/21/17 13:04 Dose: 25 mg Cefepime HCl 1 gm/ Dextrose 50 mls @ 100 mls/hr IVPB Q8H [facility] Last Admin: 05/21/17 09:36 Dose: 100 mls/hr Insulin Aspart (Novolog) 0 unit SC [facility] PRN Reason: Protocol Last Admin: 05/21/17 13:04 Dose: Not Given Insulin Detemir (Levemir) 5 unit SC [facility] Last Admin: 05/20/17 21:27 Dose: 5 unit Pneumococcal Polyvalent Vaccine (Pneumovax 23 Vaccine) 0.5 ml IM .ONCE ONE Stop: 05/22/17 10:01 Rosuvastatin Calcium (Crestor) 2.5 mg PO [facility] Last Admin: 05/20/17 21:27 Dose: 2.5 mg - Labs Labs: 05/21/17 08:01 05/21/17 08:01 - Constitutional Appears: No Acute Distress - Head Exam Head Exam: NORMAL INSPECTION - Eye Exam Eye Exam: EOMI, PERRL - ENT Exam ENT Exam: Mucous Membranes Moist, Normal External Ear Exam (LEFT EAR), Normal Oropharynx Additional comments: RIGHT EAR-DRIED BLOOD NOTED. - Neck Exam Neck Exam: Normal Inspection. absent: Lymphadenopathy, Meningismus, Thyromegaly - Cardiovascular Exam Cardiovascular Exam: REGULAR RHYTHM, +S1, +S2 - GI/Abdominal Exam GI & Abdominal Exam: Soft, Normal Bowel Sounds - Extremities Exam Extremities Exam: absent: Calf Tenderness, Pedal Edema - Neurological Exam Neurological Exam: Alert, Awake, CN II-XII Intact, Normal Gait, Oriented x3, Reflexes Normal - Skin Skin Exam: Dry, Normal Color, Warm Assessment and Plan (1) Malignant otitis externa Assessment & Plan: PT. HAS OTITIS EXTERNA . MAHAMED/ OSTEOMYLITIS RULED OUT BY MRI/BONE SCAN. PER ENT. RIGHT EAR [id number] AJ. IDENTIFICATION PENDING. CONTINUE iv CEFEPIME 1 G EVERY 8 HOURLY. (DAY 2 ) FOLLOW-UP CULTURES TO ADJUST ANTIBIOTICS. CHECK HIV -1 AND 2 ANTIBODY IN VIEW OF LEUKOPENIA. LYMPHOCYTE SUBSET STUDIES. FOLLOW-UP CBC WITH DIFFERENTIAL. BMP. LFTS IN AM. CASE DISCUSSED WITH STAFF ,CIVIL RIGHTS ATTORNEY MR. PÉREZ Status: Acute (2) Diabetes mellitus Status: Chronic (3) S/P BKA (below knee amputation) unilateral Status: Acute (4) Hyperlipidemia Status: Chronic (5) Hypertension Status: Chronic (6) CKD (chronic kidney disease) stage 3, GFR 30-59 ml/min Assessment & Plan: CREAT 1.5/ BUN 34. PER PMD/ CONSULTANTS. Status: Acute
[2017-05-21] MEDS: Rosuvastatin Calcium 2.5 mg Tab PO SCH (21:41)
[2017-05-21] MEDS: Insulin Detemir 100 units/ml Vial (Levemir) SC SCH (21:41)
--- NOTE | 2017-05-21 23:10 | CP.PCM.PN ---
Subjective - Date & Time of Evaluation Date of Evaluation: 05/21/17 Time of Evaluation: 19:00 - Subjective Subjective: Pt seen and evaluated, still complains of right ear pain , decreased, on cefepime Objective - Vital Signs/Intake and Output Vital Signs (last 24 hours): Temp Pulse Resp BP Pulse Ox 98.1 F 56 L 20 117/69 95 05/21/17 16:25 05/21/17 16:25 05/21/17 16:25 05/21/17 17:22 05/21/17 16:25 Intake and Output: 05/21/17 05/22/17 18:59 06:59 Intake Total 530 Balance 530 - Medications Medications: Current Medications Amlodipine Besylate (Norvasc) 10 mg PO DAILY [facility] Last Admin: 05/21/17 09:35 Dose: 10 mg Aspirin (Ecotrin) 81 mg PO DAILY [facility] Last Admin: 05/21/17 09:35 Dose: 81 mg Carvedilol (Coreg) 12.5 mg PO BID [facility] Last Admin: 05/21/17 17:22 Dose: Not Given Clopidogrel Bisulfate (Plavix) 75 mg PO DAILY [facility] Last Admin: 05/21/17 09:35 Dose: 75 mg Enoxaparin Sodium (Lovenox) 40 mg SC DAILY [facility] Last Admin: 05/21/17 09:36 Dose: 40 mg Furosemide (Lasix) 40 mg PO DAILY [facility] Last Admin: 05/21/17 09:35 Dose: 40 mg Hydralazine HCl (Apresoline) 25 mg PO Q8 [facility] Last Admin: 05/21/17 21:41 Dose: 25 mg Cefepime HCl 1 gm/ Dextrose 50 mls @ 100 mls/hr IVPB Q8H [facility] Last Admin: 05/21/17 17:29 Dose: 100 mls/hr Insulin Aspart (Novolog) 0 unit SC [facility] PRN Reason: Protocol Last Admin: 05/21/17 21:38 Dose: Not Given Insulin Detemir (Levemir) 5 unit SC [facility] Last Admin: 05/21/17 21:41 Dose: 5 unit Pneumococcal Polyvalent Vaccine (Pneumovax 23 Vaccine) 0.5 ml IM .ONCE ONE Stop: 05/22/17 10:01 Rosuvastatin Calcium (Crestor) 2.5 mg PO [facility] Last Admin: 05/21/17 21:41 Dose: 2.5 mg - Labs Labs: 05/21/17 08:01 05/21/17 08:01 - Constitutional Appears: No Acute Distress - Head Exam Head Exam: ATRAUMATIC, NORMAL INSPECTION, NORMOCEPHALIC - Eye Exam Eye Exam: EOMI, Normal appearance, PERRL Pupil Exam: NORMAL ACCOMODATION, PERRL - ENT Exam ENT Exam: absent: Mucous Membranes Dry, Mucous Membranes Moist, Normal Exam, Normal External Ear Exam, Normal Oropharynx, TM's Normal Bilaterally - Respiratory Exam Respiratory Exam: Clear to Ausculation Bilateral, NORMAL BREATHING PATTERN - Cardiovascular Exam Cardiovascular Exam: REGULAR RHYTHM, +S1, +S2. absent: Murmur
[2017-05-22] MEDS: (Novolog) Insulin Aspart, Recombinant 100 u/ml 10 ml vial SC SCH ×4 (07:13→22:00)
[2017-05-22 07:41] LABS: BASO % 0.5 % (0.0-2.0); EOS # 0.1 K/uL (0.0-0.7); EOS % 1.9 % (0.0-4.0); HEMATOCRIT 33.7 % (35.0-51.0); LYMPH # 0.8 K/uL (1.0-4.3); LYMPH % 20.4 % (20.0-40.0); MEAN CELL VOLUME 89.4 fL (80.0-94.0); MEAN CORPUSCULAR HEMOGLOBIN 29.3 pg (27.0-31.0); MEAN CORPUSCULAR HGB CONC 32.8 g/dL (33.0-37.0); MEAN PLATELET VOLUME 7.5 fL (7.2-11.7); MONO # 0.4 K/uL (0.0-0.8); MONO % 10.5 % (0.0-10.0); NRBC % 0.2 % (0.0-2.0); RED CELL DISTRIBUTION WIDTH 14.1 % (11.5-14.5); WHITE BLOOD COUNT 3.7 K/uL (4.8-10.8)
[2017-05-22 08:16] LABS: CALCIUM 8.1 mg/dl (8.6-10.4); POTASSIUM 4.2 mmol/L (3.6-5.2)
[2017-05-22] MEDS: Enoxaparin 40 mg Syringe SC SCH (09:19)
[2017-05-22] MEDS ORDERED: Bisoprolol-HCTZ 10-6.25 mg Tab PO SCH (10:00)
[2017-05-22] MEDS ORDERED: Pneumococcal 23-Valent Vaccine IM ONE (10:00)
[2017-05-22 15:41] VITALS: RESP 20
--- NOTE | 2017-05-22 17:16 | CP.PCM.PN ---
Subjective - Date & Time of Evaluation Date of Evaluation: 05/22/17 Time of Evaluation: 17:16 - Subjective Subjective: AFEBRILE, VSS. NO NEW COMPLAINTS. DENIES HEADACHE. RIGHT EAR PAIN MUCH IMPROVED. NO MORE BLOODY DISCHARGE FROM RIGHT EAR. RT.EAR CULTURE +ve PSEUDOMONAS AERUGINOSA. MRSA SCREEN POSITIVE. LABS REVIEWED; cREATININE 1.8/bun 39 INCREASING wbc 3.7 H/H 11.0 STABLE pLATELETS 206. Objective - Vital Signs/Intake and Output Vital Signs (last 24 hours): Temp Pulse Resp BP Pulse Ox 98 F 60 20 172/67 H 96 05/22/17 15:40 05/22/17 15:40 05/22/17 15:40 05/22/17 15:40 05/22/17 15:40 Intake and Output: 05/22/17 05/22/17 06:59 18:59 Intake Total 150 50 Balance 150 50 - Medications Medications: Current Medications Amlodipine Besylate (Norvasc) 10 mg PO DAILY [facility] Last Admin: 05/22/17 09:19 Dose: 10 mg Aspirin (Ecotrin) 81 mg PO DAILY [facility] Last Admin: 05/22/17 09:18 Dose: 81 mg Carvedilol (Coreg) 12.5 mg PO BID [facility] Last Admin: 05/22/17 11:55 Dose: Not Given Clopidogrel Bisulfate (Plavix) 75 mg PO DAILY [facility] Last Admin: 05/22/17 09:17 Dose: 75 mg Enoxaparin Sodium (Lovenox) 40 mg SC DAILY [facility] Last Admin: 05/22/17 09:19 Dose: 40 mg Furosemide (Lasix) 40 mg PO DAILY [facility] Last Admin: 05/22/17 11:03 Dose: Not Given Hydralazine HCl (Apresoline) 25 mg PO Q8 [facility] Last Admin: 05/22/17 13:30 Dose: 25 mg Cefepime HCl 1 gm/ Dextrose 50 mls @ 100 mls/hr IVPB Q12H [facility] Insulin Aspart (Novolog) 0 unit SC ACHS [facility] PRN Reason: Protocol Last Admin: 05/22/17 13:30 Dose: Not Given Insulin Detemir (Levemir) 5 unit SC HS [facility] Last Admin: 05/21/17 21:41 Dose: 5 unit Mupirocin (Bactroban 2% Nasal) 0.5 gm ESTEFANI BID [facility] Rosuvastatin Calcium (Crestor) 2.5 mg PO HS [facility] Last Admin: 05/21/17 21:41 Dose: 2.5 mg - Labs Labs: 05/22/17 07:29 05/22/17 07:29 - Constitutional Appears: No Acute Distress - Head Exam Head Exam: NORMAL INSPECTION - Eye Exam Eye Exam: EOMI, PERRL - ENT Exam ENT Exam: Mucous Membranes Moist, Normal External Ear Exam (LEFT EAR. RIGHT EAR -OLD CLOTTED BLOODY DISCHARGE. EARDRUM NOT VISUALIZED), Normal Oropharynx - Neck Exam Neck Exam: Normal Inspection. absent: Meningismus - Respiratory Exam Respiratory Exam: Clear to Ausculation Bilateral, NORMAL BREATHING PATTERN - Cardiovascular Exam Cardiovascular Exam: REGULAR RHYTHM, +S1, +S2 - GI/Abdominal Exam GI & Abdominal Exam: Soft, Normal Bowel Sounds - Extremities Exam Extremities Exam: absent: Calf Tenderness, Pedal Edema - Neurological Exam Neurological Exam: Awake, CN II-XII Intact, Normal Gait, Oriented x3, Reflexes Normal - Psychiatric Exam Psychiatric exam: Normal Mood - Skin Skin Exam: Normal Color, Warm Assessment and Plan (1) Otitis externa due to Pseudomonas aeruginosa Assessment & Plan: patient on IV cefepime. Decreased dose to 1 g every 12 hourly in view of increasing azotemia. monitor renal functions closely. PATIENT TO USE bACTROBAN OINTMENT INTRANASAL TWICE A DAY FOR 7 DAYS Case discussed with the staff. Patient can be discharged when medically stable on by mouth Vantin 200 mg twice a day for 10 days. Status: Acute (2) Diabetes mellitus Status: Chronic (3) S/P BKA (below knee amputation) unilateral Status: Acute (4) Hyperlipidemia Status: Chronic (5) Hypertension Status: Chronic (6) CKD (chronic kidney disease) stage 3, GFR 30-59 ml/min Assessment & Plan: BUN 39/creatinine 1.8 GFR 38.. Diuretics Lasix held as per pmd. Monitor renal functions closely. Status: Acute
[2017-05-22] MEDS: Mupirocin 2% Ointment (NASAL) NAS SCH (18:09)
--- NOTE | 2017-05-22 18:15 | CP.PCM.PN ---
Subjective - Date & Time of Evaluation Date of Evaluation: 05/22/17 Time of Evaluation: 15:00 - Subjective Subjective: Pt seen and examined, is on contact isolation due to psedomonas in ear discharge culture, decresed earache Objective - Vital Signs/Intake and Output Vital Signs (last 24 hours): Temp Pulse Resp BP Pulse Ox 98 F 60 20 172/67 H 96 05/22/17 15:40 05/22/17 15:40 05/22/17 15:40 05/22/17 18:09 05/22/17 15:40 Intake and Output: 05/22/17 05/22/17 06:59 18:59 Intake Total 150 50 Balance 150 50 - Medications Medications: Current Medications Amlodipine Besylate (Norvasc) 10 mg PO DAILY [facility] Last Admin: 05/22/17 09:19 Dose: 10 mg Aspirin (Ecotrin) 81 mg PO DAILY [facility] Last Admin: 05/22/17 09:18 Dose: 81 mg Carvedilol (Coreg) 12.5 mg PO BID [facility] Last Admin: 05/22/17 18:09 Dose: 12.5 mg Clopidogrel Bisulfate (Plavix) 75 mg PO DAILY [facility] Last Admin: 05/22/17 09:17 Dose: 75 mg Enoxaparin Sodium (Lovenox) 40 mg SC DAILY [facility] Last Admin: 05/22/17 09:19 Dose: 40 mg Furosemide (Lasix) 40 mg PO DAILY [facility] Last Admin: 05/22/17 11:03 Dose: Not Given Hydralazine HCl (Apresoline) 25 mg PO Q8 [facility] Last Admin: 05/22/17 13:30 Dose: 25 mg Cefepime HCl 1 gm/ Dextrose 50 mls @ 100 mls/hr IVPB Q12H [facility] Insulin Aspart (Novolog) 0 unit SC ACHS [facility] PRN Reason: Protocol Last Admin: 05/22/17 17:00 Dose: Not Given Insulin Detemir (Levemir) 5 unit SC HS [facility] Last Admin: 05/21/17 21:41 Dose: 5 unit Mupirocin (Bactroban 2% Nasal) 0.5 gm ESTEFANI BID [facility] Last Admin: 05/22/17 18:09 Dose: 0.5 gm Rosuvastatin Calcium (Crestor) 2.5 mg PO HS [facility] Last Admin: 05/21/17 21:41 Dose: 2.5 mg - Labs Labs: 05/22/17 07:29 05/22/17 07:29 - Constitutional Appears: No Acute Distress - Head Exam Head Exam: ATRAUMATIC, NORMAL INSPECTION, NORMOCEPHALIC - Eye Exam Eye Exam: EOMI, Normal appearance, PERRL Pupil Exam: NORMAL ACCOMODATION, PERRL - ENT Exam ENT Exam: absent: Mucous Membranes Dry, Mucous Membranes Moist, Normal Exam, Normal External Ear Exam, Normal Oropharynx, TM's Normal Bilaterally Additional comments: malignant otitis extrena redness, erythema, discharge - Respiratory Exam Respiratory Exam: Clear to Ausculation Bilateral, NORMAL BREATHING PATTERN - Cardiovascular Exam Cardiovascular Exam: REGULAR RHYTHM, +S1, +S2. absent: Murmur - Neurological Exam Neurological Exam: Alert, Awake, CN II-XII Intact, Normal Gait, Oriented x3 Assessment and Plan (1) Malignant otitis externa Status: Acute (2) CKD (chronic kidney disease) stage 3, GFR 30-59 ml/min Status: Acute (3) DVT prophylaxis Status: Acute (4) S/P BKA (below knee amputation) unilateral Status: Acute (5) Anemia Status: Chronic (6) Diabetes mellitus Status: Chronic (7) Hyperlipidemia Status: Chronic
[2017-05-22] MEDS: Rosuvastatin Calcium 2.5 mg Tab PO SCH (21:45)
[2017-05-22] MEDS: Insulin Detemir 100 units/ml Vial (Levemir) SC SCH (21:52)
[2017-05-23 07:48] VITALS: BP 127/69; PULSE 55; TEMP 98; O2SAT 95
[2017-05-23] MEDS: Enoxaparin 40 mg Syringe SC SCH (09:59)
[2017-05-23] MEDS: Mupirocin 2% Ointment (NASAL) NAS SCH (10:00)
--- NOTE | 2017-05-23 12:01 | CP.PCM.PN ---
Subjective - Date & Time of Evaluation Date of Evaluation: 05/23/17 Time of Evaluation: 12:01 - Subjective Subjective: afebrile No new complaints.. Denies pain right ear. Denies any further bleeding or discharge from right ear. Case discussed with the staff [place] (HISTORICAL SOCIETY DIRECTOR ) Patient can be discharged when medically cleared on by mouth Vantin 200 mg twice a day for 10 days. BACTOBEN OINTMENT TO NARIS B/L BID FOR 1 WEEK. CIPRODEX EAR DROPS PRESCRIBED BY ENT. f/u renal function /cbc as OPD. Objective - Vital Signs/Intake and Output Vital Signs (last 24 hours): Temp Pulse Resp BP Pulse Ox 98 F 55 L 20 127/69 95 05/23/17 07:47 05/23/17 07:47 05/23/17 07:47 05/23/17 10:00 05/23/17 07:47 Intake and Output: 05/23/17 05/23/17 06:59 18:59 Intake Total 150 Balance 150 - Medications Medications: Current Medications Amlodipine Besylate (Norvasc) 10 mg PO DAILY [facility] Last Admin: 05/23/17 10:00 Dose: 10 mg Aspirin (Ecotrin) 81 mg PO DAILY [facility] Last Admin: 05/23/17 09:59 Dose: 81 mg Carvedilol (Coreg) 12.5 mg PO BID [facility] Last Admin: 05/23/17 10:00 Dose: 12.5 mg Clopidogrel Bisulfate (Plavix) 75 mg PO DAILY [facility] Last Admin: 05/23/17 09:59 Dose: 75 mg Enoxaparin Sodium (Lovenox) 40 mg SC DAILY [facility] Last Admin: 05/23/17 09:59 Dose: 40 mg Furosemide (Lasix) 40 mg PO DAILY [facility] Last Admin: 05/22/17 11:03 Dose: Not Given Hydralazine HCl (Apresoline) 25 mg PO Q8 [facility] Last Admin: 05/23/17 07:03 Dose: 25 mg Cefepime HCl 1 gm/ Dextrose 50 mls @ 100 mls/hr IVPB Q12H [facility] Last Admin: 05/23/17 09:59 Dose: 100 mls/hr Insulin Aspart (Novolog) 0 unit SC ACHS [facility] PRN Reason: Protocol Last Admin: 05/22/17 22:00 Dose: Not Given Insulin Detemir (Levemir) 5 unit SC HS [facility] Last Admin: 05/22/17 21:52 Dose: 5 unit Mupirocin (Bactroban 2% Nasal) 0.5 gm ESTEFANI BID [facility] Last Admin: 05/23/17 10:00 Dose: 0.5 gm Rosuvastatin Calcium (Crestor) 2.5 mg PO HS [facility] Last Admin: 05/22/17 21:45 Dose: 2.5 mg - Labs Labs: 05/22/17 07:29 05/22/17 07:29 - Constitutional Appears: No Acute Distress - Head Exam Head Exam: NORMAL INSPECTION - Eye Exam Eye Exam: EOMI, PERRL. absent: Scleral icterus - ENT Exam ENT Exam: Normal Exam (LEFT EAR. RT EAR NO DRAINAGE NOTED.), Normal Oropharynx - Neck Exam Neck Exam: Normal Inspection. absent: Lymphadenopathy, Meningismus, Thyromegaly - Respiratory Exam Respiratory Exam: Clear to Ausculation Bilateral, NORMAL BREATHING PATTERN - Cardiovascular Exam Cardiovascular Exam: REGULAR RHYTHM, +S1, +S2 - GI/Abdominal Exam GI & Abdominal Exam: Soft, Normal Bowel Sounds. absent: Organomegaly - Extremities Exam Extremities Exam: absent: Calf Tenderness, Pedal Edema Additional comments: LEFT BKA. - Neurological Exam Neurological Exam: Awake, CN II-XII Intact, Normal Gait, Oriented x3 - Psychiatric Exam Psychiatric exam: Normal Mood - Skin Skin Exam: Normal Color, Warm Assessment and Plan (1) Otitis externa due to Pseudomonas aeruginosa Assessment & Plan: on by mouth Vantin 200 mg twice a day for 10 days. BACTOBEN OINTMENT TO NARIS B/L BID FOR 1 WEEK. CIPRODEX EAR DROPS PRESCRIBED BY ENT. f/u renal function /cbc as OPD. Status: Acute (2) Diabetes mellitus Status: Chronic (3) S/P BKA (below knee amputation) unilateral Status: Acute (4) Hyperlipidemia Status: Chronic (5) Hypertension Status: Chronic (6) CKD (chronic kidney disease) stage 3, GFR 30-59 ml/min Status: Acute
--- NOTE | 2017-05-23 12:19 | CP.PCM.PN ---
Subjective - Date & Time of Evaluation Date of Evaluation: 05/23/17 Time of Evaluation: 12:15 - Subjective Subjective: PT SEEN AND CLEARED FOR D/C, OK PER DR. CARVAJAL. PT HAS NO NEW COMPLAINTS AND STATES HE FEELS "MUCH BETTER." ON EXAM OF RT EAR: NO DRAINAGE COMING FROM RT EAR, NO TENDERNESS NOTED EITHER. DR. LEMON'S [id number] NOTED AND APPRECIATED; PT CLEARED ENT PAUL WITH PO ABX AND EAR GTTS. DISCUSSED WITH DR. RENDON AND PER HER RECOMMENDATIONS PT TO TAKE VANTIN 200 MG TAKE 1 TABLET BY MOUTH TWICE A DAY FOR 10 DAYS (TAKE AT MORNING AND EVENING). PT WILL CONTINUE TAKING OTIC GTTS PREVIOUSLY PRESCRIBED BY PMD FOR ANOTHER 10 DAYS. DIETETIC TECH CONFIRMED WITH PT'S PHARMACY AND HE WAS RX CORTISPORIN. PT TO F/ U WITH PMD IN 1 WEEK, WITH DR. RENDON AND DR. LEMON WITHIN 2 WEEKS (AFTER ABX ARE COMPLETED). TO ALSO CONTINUE MUPIROCIN NASALLY BID X5 DAYS FOR NASAL MRSA. PT VERBALIZES UNDERSTANDING OFF ALL D/C INFORMATION AND MEDICATION RX. NO FURTHER ORDERS. D/C DISCUSSED W PRIMARY RN. Objective - Vital Signs/Intake and Output Vital Signs (last 24 hours): Temp Pulse Resp BP Pulse Ox 98 F 55 L 20 127/69 95 05/23/17 07:47 05/23/17 07:47 05/23/17 07:47 05/23/17 10:00 05/23/17 07:47 Intake and Output: 05/23/17 05/23/17 06:59 18:59 Intake Total 150 Balance 150 - Medications Medications: Current Medications Amlodipine Besylate (Norvasc) 10 mg PO DAILY [facility] Last Admin: 05/23/17 10:00 Dose: 10 mg Aspirin (Ecotrin) 81 mg PO DAILY [facility] Last Admin: 05/23/17 09:59 Dose: 81 mg Carvedilol (Coreg) 12.5 mg PO BID [facility] Last Admin: 05/23/17 10:00 Dose: 12.5 mg Clopidogrel Bisulfate (Plavix) 75 mg PO DAILY [facility] Last Admin: 05/23/17 09:59 Dose: 75 mg Enoxaparin Sodium (Lovenox) 40 mg SC DAILY [facility] Last Admin: 05/23/17 09:59 Dose: 40 mg Furosemide (Lasix) 40 mg PO DAILY [facility] Last Admin: 05/22/17 11:03 Dose: Not Given Hydralazine HCl (Apresoline) 25 mg PO Q8 [facility] Last Admin: 05/23/17 07:03 Dose: 25 mg Cefepime HCl 1 gm/ Dextrose 50 mls @ 100 mls/hr IVPB Q12H [facility] Last Admin: 05/23/17 09:59 Dose: 100 mls/hr Insulin Aspart (Novolog) 0 unit SC [facility] PRN Reason: Protocol Last Admin: 05/22/17 22:00 Dose: Not Given Insulin Detemir (Levemir) 5 unit SC [facility] Last Admin: 05/22/17 21:52 Dose: 5 unit Mupirocin (Bactroban 2% Nasal) 0.5 gm ESTEFANI BID [facility] Last Admin: 05/23/17 10:00 Dose: 0.5 gm Rosuvastatin Calcium (Crestor) 2.5 mg PO HS [facility] Last Admin: 05/22/17 21:45 Dose: 2.5 mg - Labs Labs: 05/22/17 07:29 05/22/17 07:29
[2017-05-23] MEDS: (Novolog) Insulin Aspart, Recombinant 100 u/ml 10 ml vial SC SCH ×2 (12:25→12:30)
--- NOTE | 2017-05-23 23:39 | CP.PCM.DIS ---
Provider - Provider Date of Admission: 05/19/17 18:21 Attending physician: Francisco Haro MD Diagnosis - Discharge Diagnosis (1) Malignant otitis externa Status: Acute (2) CKD (chronic kidney disease) stage 3, GFR 30-59 ml/min Status: Acute (3) DVT prophylaxis Status: Acute Priority: High (4) Prophylactic measure Status: Acute (5) S/P BKA (below knee amputation) unilateral Status: Acute Priority: High (6) Anemia Status: Chronic Priority: Low (7) Diabetes mellitus Status: Chronic Priority: High (8) Hyperlipidemia Status: Chronic Priority: Medium Hospital Course - Lab Results Lab Results: Micro Results 05/19/17 18:15 Blood Blood Culture - Preliminary NO GROWTH AFTER 4 DAYS 05/19/17 18:00 Blood Blood Culture - Preliminary NO GROWTH AFTER 4 DAYS 05/21/17 Unknown Naris MRSA Culture (Admit) - Final MRSA DETECTED 05/20/17 13:30 Ear - Right Gram Stain - Final 05/20/17 13:30 Ear - Right Ear Culture - Final Pseudomonas Aeruginosa Most Recent Lab Values WBC 3.7 K/uL (4.8-10.8) L 05/22/17 07:29 RBC 3.77 Mil/uL (4.40-5.90) L 05/22/17 07:29 Hgb 11.0 g/dL (12.0-18.0) L 05/22/17 07:29 Hct 33.7 % (35.0-51.0) L 05/22/17 07:29 MCV 89.4 fL (80.0-94.0) 05/22/17 07:29 MCH 29.3 pg (27.0-31.0) 05/22/17 07:29 MCHC 32.8 g/dL (33.0-37.0) L 05/22/17 07:29 RDW 14.1 % (11.5-14.5) 05/22/17 07:29 Plt Count 206 K/uL (130-400) 05/22/17 07:29 MPV 7.5 fL (7.2-11.7) 05/22/17 07:29 Neut % (Auto) 66.7 % (50.0-75.0) 05/22/17 07:29 Lymph % (Auto) 20.4 % (20.0-40.0) 05/22/17 07:29 [place] % (Auto) 10.5 % (0.0-10.0) H 05/22/17 07:29 Eos % (Auto) 1.9 % (0.0-4.0) 05/22/17 07:29 Baso % (Auto) 0.5 % (0.0-2.0) 05/22/17 07:29 Neut # 2.5 K/uL (1.8-7.0) 05/22/17 07:29 Lymph # 0.8 K/uL (1.0-4.3) L 05/22/17 07:29 [place] # 0.4 K/uL (0.0-0.8) 05/22/17 07:29 Eos # 0.1 K/uL (0.0-0.7) 05/22/17 07:29 Baso # 0.0 K/uL (0.0-0.2) 05/22/17 07:29 ESR 23 mm/hr (0-15) H 05/21/17 08:01 Sodium 136 mmol/L (132-148) 05/22/17 07:29 Potassium 4.2 mmol/L (3.6-5.2) 05/22/17 07:29 Chloride 103 mmol/L (98-107) 05/22/17 07:29 Carbon Dioxide 24 mmol/L (22-30) 05/22/17 07:29 Anion Gap 14 (10-20) 05/22/17 07:29 BUN 39 mg/dL (9-20) H 05/22/17 07:29 Creatinine 1.8 mg/dL (0.8-1.5) H 05/22/17 07:29 Est GFR ( Amer) 46 05/22/17 07:29 Est GFR (Non-Af Amer) 38 05/22/17 07:29 POC Glucose (mg/dL) 109 mg/dL (65-110) 05/23/17 11:03 Random Glucose 95 mg/dL (75-110) 05/22/17 07:29 Hemoglobin A1c 6.1 % (4.2-6.5) 05/21/17 08:01 Calcium 8.1 mg/dl (8.6-10.4) L 05/22/17 07:29 Total Bilirubin 0.8 mg/dL (0.2-1.3) 05/19/17 18:17 AST 26 U/L (17-59) 05/19/17 18:17 ALT 28 U/L (21-72) 05/19/17 18:17 Alkaline Phosphatase 64 U/L (38-126) 05/19/17 18:17 C-React Prot High Sens 4.40 mg/L (1.00-3.00) H 05/21/17 08:01 Total Protein 8.5 g/dL (6.3-8.3) H 05/19/17 18:17 Albumin 4.4 g/dL (3.5-5.0) 05/19/17 18:17 Globulin 4.1 gm/dL (2.2-3.9) H 05/19/17 18:17 Albumin/Globulin Ratio 1.1 (1.0-2.1) 05/19/17 18:17 HIV 1&2 Antibody Screen Negative (NEGATIVE) 05/23/17 06:43 - Hospital Course Hospital Course: PT SEEN AND CLEARED FOR D/C, . PT HAS NO NEW COMPLAINTS AND STATES HE FEELS "MUCH BETTER." ON EXAM OF RT EAR: NO DRAINAGE COMING FROM RT EAR, NO TENDERNESS NOTED EITHER. DR. LEMON'S [id number] NOTED AND APPRECIATED; PT CLEARED ENT PAUL WITH PO ABX AND EAR GTTS. DISCUSSED WITH DR. ROBERTS AND PER HER RECOMMENDATIONS PT TO TAKE VANTIN 200 MG TAKE 1 TABLET BY MOUTH TWICE A DAY FOR 10 DAYS (TAKE AT MORNING AND EVENING). PT WILL CONTINUE TAKING OTIC GTTS PREVIOUSLY PRESCRIBED BY PMD FOR ANOTHER 10 DAYS. SHUTTLE OPERATOR CONFIRMED WITH PT'S PHARMACY AND HE WAS RX CORTISPORIN. PT TO F/ U WITH PMD IN 1 WEEK, WITH DR. ROBERTS AND DR. LEMON WITHIN 2 WEEKS (AFTER ABX ARE COMPLETED). TO ALSO CONTINUE MUPIROCIN NASALLY BID X5 DAYS FOR NASAL MRSA. PT VERBALIZES UNDERSTANDING OFF ALL D/C INFORMATION AND MEDICATION RX. NO FURTHER ORDERS. D/C DISCUSSED W PRIMARY RN. Discharge Exam - Head Exam Head Exam: NORMAL INSPECTION Discharge Plan - Discharge Medications Prescriptions: Mupirocin 2% Nasal [Bactroban 2% Nasal] 0.5 gm ESTEFANI BID 5 Days #1 tube Neomycin/Polymyxin/Hydrocort [Cortisporin Otic Soln] 1 drop AU TID 10 Days #1 bottle Cefpodoxime [Vantin] 200 mg PO BID #20 tab - Follow Up Plan Condition: FAIR Disposition: HOME/ ROUTINE Instructions: Cefpodoxime Proxetil (By mouth), Mupirocin (Into the nose), Neomycin/Polymyxin B/Hydrocortisone (Into the ear), MRSA (Methicillin Resistant Staphylococcus Aureus) (DC), Otitis Externa (DC) Additional Instructions: FOLLOW UP WITH DR. MCCAULEY (YOUR PRIMARY DOCTOR) IN THE OFFICE WITHIN 1-2 WEEKS--- CALL FOR AN APPT TIME. FOLLOW UP WITH DR. ROBERTS (INFECTION DOCTOR) IN ABOUT 2 WEEKS (AFTER YOU FINISH YOU ANTIBIOTIC)---CALL OFFICE TODAY OR TOMORROW AND MAKE AN APPT. FOLLOW UP WITH DR. LEMON (EAR, NOSE, THROAT DOCTOR) IN THE OFFICE IN ABOUT 2 WEEKS---CALL THE OFFICE TO MAKE AN APPT. CONTINUE ALL HOME MEDICATIONS USUAL. YOU HAVE BEEN PRESCRIBED AN ANTIBIOTIC FOR A TOTAL OF 10 DAYS: VANTIN 200 MG TAKE 1 TABLET BY MOUTH TWICE A DAY FOR 10 DAYS (TAKE AT MORNING AND EVENING). CONTINUE TAKING YOUR EAR DROPS PREVIOUSLY PRESCRIBED BY YOUR DOCTOR FOR ANOTHER 10 DAYS. IF YOU HAVE ANY FURTHER CONCERNS OR QUESTIONS, CONTACT DR. HARO'S OFFICE. Referrals: Missael Lemon MD [Staff Provider] - 2 Weeks Michael Roberts MD [Staff Provider] - 2 Weeks Francisco Haro MD [Staff Provider] -
== END 2017-05-23 13:55 | disposition home or self-care (01) | DRG 156 ==
LOC: C.ER 16:44 → C.9E 18:21 → C.5S 05-20 09:14
PROVIDERS: ADMIT Internal Medicine; ATTEND Internal Medicine
DX: H60.21 Malignant otitis externa, right ear (principal); E11.22 Type 2 diabetes mellitus with diabetic chronic kidney disease; E11.621 Type 2 diabetes mellitus with foot ulcer; N18.3 Chronic kidney disease, stage 3 (moderate); I12.9 Hypertensive chronic kidney disease with stage 1 through stage 4 chronic kidney disease, or unspecified chronic kidney disease; D64.9 Anemia, unspecified; L97.529 Non-pressure chronic ulcer of other part of left foot with unspecified severity; I70.202 Unspecified atherosclerosis of native arteries of extremities, left leg; Z89.512 Acquired absence of left leg below knee; E78.5 Hyperlipidemia, unspecified